=== PATIENT | male | born 1975 | race Caucasian/White ===

== ENCOUNTER 2019-09-03 04:13 | Emergency (ER) | payer MEDICAID, OTHER ==
--- NOTE | 2019-09-03 05:42 | EDM.PDOC ---
ED HPI GENERAL MEDICAL PROBLEM - General Chief Complaint: Abdominal Pain Stated Complaint: SIDE AND ABDOMINAL PAIN Time Seen by Provider: 09/03/19 04:29 Source of Information: Reports: Patient History Limitations: Reports: No Limitations - History of Present Illness INITIAL COMMENTS - FREE TEXT/NARRATIVE: Is a 43-year-old male. He has a history of left upper quadrant abdominal pain that comes and goes for several years. Apparently the last couple of days or so he has been having some diarrhea but no blood. He has been having increasing left upper quadrant pain. Worse over the last week. He denies any trauma to his abdomen. Area in the left upper quadrant hurts with palpation or if he lays on that side. He still has his gallbladder and he denies any history of problems with the gallbladder he has had no surgeries to his abdomen. Appears to be in the epigastric area radiating to the left upper quadrant. Oftentimes after experiencing the pain in his left upper quadrant he will have the diarrhea. He denies any fever or chills he denies any other acute symptoms. He has not been worked up for this in the past. The patient has been checked for COVID recently and it was negative. Left Abdomen Pain Score (Numeric/FACES): 5 - Related Data Allergies Allergy/AdvReac Type Severity Reaction Status Date / Time No Known Allergies Allergy Verified 07/13/17 08:20 [employer] Home Meds: Home Meds Ibuprofen 2 tab PO ASDIRECTED PRN 07/13/17 [History] polyethylene glycoL 3350 [Miralax] 1 capful PO ASDIRECTED PRN 07/13/17 [History] Dicyclomine [Bentyl] 10 mg PO QIDACANDBED PRN #60 cap 07/15/17 [Rx] Dicyclomine [Bentyl] 20 mg PO Q6H PRN #20 tablet 09/03/19 [Rx] Past Medical History - Past Health History Medical/Surgical History: Denies Medical/Surgical History Gastrointestinal History: Reports: Other (See Below) Other Gastrointestinal History: persistent lt sided abd pain Musculoskeletal History: Reports: Back Pain, Chronic Endocrine/Metabolic History: Reports: Obesity/BMI 30+ Dermatologic History: Reports: Other (See Below) Other Dermatologic History: hx MRSA - Past Surgical History Head Surgeries/Procedures: Reports: None GI Surgical History: Reports: Other (See Below) Other GI Surgeries/Procedures: endoscopy Social & Family History - Family History Family Medical History: Noncontributory - Tobacco Use Smoking Status *Q: Former Smoker Used Tobacco, but Quit: Yes Month/Year Tobacco Last Used: 06/2018 - Caffeine Use Caffeine Use: Reports: None - Recreational Drug Use Recreational Drug Use: No ED ROS GENERAL - Review of Systems Review Of Systems: See Below Constitutional: Denies: Fever, Chills HEENT: Reports: No Symptoms Respiratory: Denies: Shortness of Breath, Cough Cardiovascular: Reports: No Symptoms Endocrine: Reports: No Symptoms GI/Abdominal: Reports: Abdominal Pain, Diarrhea. Denies: Bloody Stool, Nausea, Vomiting : Reports: No Symptoms Musculoskeletal: Reports: No Symptoms Skin: Reports: No Symptoms Neurological: Reports: No Symptoms Psychiatric: Reports: No Symptoms Hematologic/Lymphatic: Reports: No Symptoms ED EXAM, GI/ABD - Physical Exam Exam: See Below Exam Limited By: No Limitations General Appearance: Alert, WD/WN, No Apparent Distress Eyes: Bilateral: Normal Appearance Ears: Normal External Exam Nose: Normal Inspection Throat/Mouth: Normal Lips, Normal Voice, No Airway Compromise Head: Normocephalic Neck: Supple Respiratory/Chest: No Respiratory Distress, Lungs Clear, Normal Breath Sounds Cardiovascular: Regular Rate, Rhythm, No Murmur GI/Abdominal Exam: Soft, Other (Some mild tenderness in epigastric and left upper quadrant but there is no masses noted there is no rebound, it is tender but not exquisitely so, there is no left lower quadrant or right-sided abdominal tenderness and bowel sounds are positive) Back Exam: Full Range of Motion Extremities: Normal Inspection, Normal Range of Motion Neurological: Alert, Oriented Psychiatric: Normal Affect, Normal Mood Skin Exam: Warm, Dry Course - Vital Signs Last Recorded V/S: Last Vital Signs Temp 97.6 F 09/03/19 04:21 Pulse 64 09/03/19 04:21 Resp 18 09/03/19 04:21 BP 139/74 09/03/19 04:21 Pulse Ox 99 09/03/19 04:21 - Orders/Labs/Meds Orders: Active Orders 24 hr Category Date Time Status KUB [Abdomen 1V Flat] [CR] Stat Exams 09/03/19 05:33 Taken Labs: Laboratory Tests 09/03/19 09/03/19 Range/Units 05:48 05:48 WBC 7.10 (4.23-9.07) K/mm3 RBC 5.45 (4.63-6.08) M/mm3 Hgb 14.8 (13.7-17.5) gm/dl Hct 44.1 (40.1-51.0) % MCV 80.9 (79.0-92.2) fl MCH 27.2 (25.7-32.2) pg MCHC 33.6 (32.2-35.5) g/dl RDW Std Deviation 40.2 (35.1-43.9) fL Plt Count 287 (163-337) K/mm3 MPV 9.6 (9.4-12.3) fl Neut % (Auto) 48.4 (34.0-67.9) % Lymph % (Auto) 38.7 (21.8-53.1) % [place] % (Auto) 8.3 (5.3-12.2) % Eos % (Auto) 3.4 (0.8-7.0) Baso % (Auto) 0.4 (0.1-1.2) % Neut # (Auto) 3.43 (1.78-5.38) K/mm3 Lymph # (Auto) 2.75 (1.32-3.57) K/mm3 [place] # (Auto) 0.59 (0.30-0.82) K/mm3 Eos # (Auto) 0.24 (0.04-0.54) K/mm3 Baso # (Auto) 0.03 (0.01-0.08) K/mm3 Sodium 140 (136-145) mEq/L Potassium 4.0 (3.5-5.1) mEq/L Chloride 104 (98-107) mEq/L Carbon Dioxide 24 (21-32) mEq/L Anion Gap 16.0 H (5-15) BUN 18 (7-18) mg/dL Creatinine 0.9 (0.7-1.3) mg/dL Est Cr Clr Drug Dosing 115.04 mL/min Estimated GFR (MDRD) > 60 (>60) mL/min BUN/Creatinine Ratio 20.0 H (14-18) Glucose 108 H (74-106) mg/dL Calcium 8.8 (8.5-10.1) mg/dL Total Bilirubin 0.5 (0.2-1.0) mg/dL AST 20 (15-37) U/L ALT 56 (16-63) U/L Alkaline Phosphatase 77 (46-116) U/L C-Reactive Protein <0.2 (<1.0) mg/dL Total Protein 7.0 (6.4-8.2) g/dl Albumin 3.7 (3.4-5.0) g/dl Globulin 3.3 gm/dL Albumin/Globulin Ratio 1.1 (1-2) Lipase 94 (73-393) U/L - Radiology Interpretation Free Text/Narrative:: KUB does not show any acute abnormalities. - Re-Assessments/Exams Free Text/Narrative Re-Assessment/Exam: 09/03/19 06:33 I spoke to the patient regarding the test results. His CBC is CMP C-reactive protein and lipase are all normal. His flat and upright did not show any acute abnormalities in that left upper quadrant. I have encouraged him to follow-up with his family doctor for outpatient evaluation and work-up and possible referral to a surgeon for colonoscopy. The patient is going to see his family doctor. Departure - Departure Time of Disposition: 06:34 Disposition: Home, Self-Care 01 Condition: Fair Clinical Impression: Left upper quadrant abdominal pain, Abdominal cramps Diarrhea Qualifiers: Diarrhea type: unspecified type Qualified Code(s): R19.7 - Diarrhea, unspecified - Discharge Information *PRESCRIPTION DRUG MONITORING PROGRAM REVIEWED*: Not Applicable *COPY OF PRESCRIPTION DRUG MONITORING REPORT IN PATIENT [place]: Not Applicable Prescriptions: Dicyclomine [Bentyl] 20 mg PO Q6H PRN #20 tablet PRN Reason: Abdominal Pain Instructions: Diarrhea, Adult Referrals: PCP,Not In Area [Primary Care Provider] - Forms: ED Department Discharge Additional Instructions: Follow-up with your family doctor for evaluation of your left upper quadrant abdominal pain with the diarrhea to see if you need outpatient work-up with a CT scan or if you need to be referred to a surgeon for colonoscopy, take the dicyclomine as needed for the abdominal cramps, continue to drink lots of fluids avoid caffeine because that can make the abdominal cramps worse, return to the ER if needed Sepsis Event Note - Evaluation Sepsis Screening Result: No Definite Risk - Focused Exam Vital Signs: Vital Signs Temp Pulse Resp BP Pulse Ox 09/03/19 04:21 97.6 F 64 18 139/74 99 Date Exam was Performed: 09/03/19 Time Exam was Performed: 06:33 - My Orders Last 24 Hours: My Active Orders 09/03/19 05:33 KUB [Abdomen 1V Flat] [CR] Stat - Assessment/Plan Last 24 Hours: My Active Orders 09/03/19 05:33 KUB [Abdomen 1V Flat] [CR] Stat
--- NOTE | 2019-09-03 11:58 | CR ---
Abdomen: Supine view of the abdomen was obtained. Comparison: No previous abdominal imaging is available. Bowel gas pattern appears normal. Slight degenerative change is partially visualized within the lumbar spine. No abnormal calcifications or soft tissue abnormality is seen. 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 Impression: 1. Nothing acute is seen on supine abdominal x-ray. Diagnostic code #2 This report was dictated in MDT
== END 2019-09-03 06:40 | disposition home or self-care (01) ==
LOC: JD.ED 04:13
DX: R10.12 Left upper quadrant pain (principal); R19.7 Diarrhea, unspecified; E66.9 Obesity, unspecified; Z68.36 Body mass index [BMI] 36.0-36.9, adult; Z87.891 Personal history of nicotine dependence
CPT/HCPCS: 36415; 74018; 74018-26; 80053; 83690; 85025; 86140; 99284